=== PATIENT | female | born 1970 | race Hispanic/Latino ===

== ENCOUNTER 2017-11-07 09:37 | Emergency (ER) | payer BC ==
--- NOTE | 2017-11-07 10:44 | RAD REPORT ---
EXAM DESCRIPTION: RAD - Chest Single View - 11/07/2017 10:27 am CLINICAL HISTORY: Chest pain COMPARISON: None. TECHNIQUE: AP portable chest image was obtained 1023 hours . FINDINGS: Lungs are clear. Heart and vasculature are normal. No measurable pleural effusion and no p neumothorax. No gross bony abnormality seen. No acute aortic findings suspected. IMPRESSION: No acute cardiopulmonary process.
[2017-11-07] MEDS ORDERED: ASPIRIN 81 MG CHEWABLE TABLET ONE (10:48)
[2017-11-07 10:53] LABS: Protime INR 0.97
[2017-11-07 10:54] LABS: Absolute Lymphocytes (CBC) 0.9 K/uL (0.7-4.9); Absolute Monocytes 0.3 K/uL (0.1-1.3); Absolute Neutrophil 4.6 K/uL (1.8-8.0); Basophils % 0.5 % (0-1.3); Eosinophils % 0.9 % (0-4.4); Hematocrit 40.4 % (36.0-45.0); Lymphocytes % 15.9 % (15.3-44.8); MCH 29.7 pg (27.0-35.0); Monocytes % 4.4 % (3.3-12.3); RBC Red Blood Cell Count 4.64 M/uL (3.86-4.86)
--- NOTE | 2017-11-07 11:08 | EKG ---
Test Date: 2017-11-07 Test Time: 10:16:41 Electronic Operator: ROMERO MEASUREMENT RESULTS: Intervals: Rate: 66 MO: 190 QRSD: 88 QT: 376 QTc: 394 [place]: P: 55 MO: 190 QRS: 79 T: 24 INTERPRETIVE STATEMENTS: Normal sinus rhythm Nonspecific T wave abnormality Abnormal ECG Compared to ECG 02/20/2002 10:47:00 No significant changes Electronically Signed On 11-07-17 11:08:10 CDT by Jon Tovar
[2017-11-07 11:22] LABS: ALT/SGPT 33 U/L (12-78); AST/SGOT 18 U/L (15-37); Alkaline Phosphatase 102 U/L (45-117); BUN Blood Urea Nitrogen 13 mg/dL (7-18); Bicarbonate 29 mmol/L (21-32); Bilirubin Direct < 0.1 mg/dL (0-0.2); Bilirubin Total 0.3 mg/dL (0.2-1.0); Glucose Level 127 mg/dL (74-106); Magnesium 2.3 mg/dL (1.8-2.4); NT PRO-BNP 11 pg/mL (<125); Potassium 3.9 mmol/L (3.5-5.1); Protein, Total 8.2 g/dL (6.4-8.2); Sodium Level 143 mmol/L (136-145)
[2017-11-07 11:29] LABS: Thyroid Stimulating Hormone 1.63 uIU/mL (0.36-3.74)
[2017-11-07 12:21] LABS: Urine Blood NEGATIVE (NEG); Urine Glucose NEGATIVE (NEG); Urine Protein NEGATIVE (NEG)
--- NOTE | 2017-11-07 12:57 | EDPHYS ---
Physician Documentation [facility] Name: Estrellita Matute Age: 47 yrs Sex: Female : 1970 Arrival Date: 11/07/2017 Time: 09:40 Bed 15 Private MD: Candelario Mendez H ED Physician Jas Curiel HPI: 11/07 10:41 This 47 yrs old Female presents to ER via Ambulatory with complaints of Chest jr8 Tightness. 10:41 The patient or guardian reports chest pain that is located primarily in the anterior jr8 chest wall, left. Onset: acutely, yesterday. The pain radiates to the left arm. Associated signs and symptoms: Pertinent positives: fatigue. The chest pain is described as squeezing. Duration: The patient or guardian reports multiple episodes. Modifying factors: The symptoms are alleviated by nothing. the symptoms are aggravated by nothing. Severity of pain: At its worst the pain was moderate in the emergency department the pain has improved. The patient has not experienced similar symptoms in the past. The patient has not recently seen a physician. Stated that she has been feeling fatigued more so with exertion for the past month. Yesterday had episode of chest pain. Today had episode that lasted for about 1 hour. Came to ED at that time for further evaluation . 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 - Social history:: Smoking status: Patient/guardian denies using tobacco. - Ebola Screening: : Patient negative for fever greater than or equal to 101.5 degrees Fahrenheit, and additional compatible Ebola Virus Disease symptoms Patient denies exposure to infectious person Patient denies travel to an Ebola-affected area in the 21 days before illness onset No symptoms or risks identified at this time. ROS: 10:41 Eyes: Negative for injury, pain, redness, and discharge, ENT: Negative for injury, jr8 pain, and discharge, Neck: Negative for injury, pain, and swelling, Respiratory: Negative for shortness of breath, cough, wheezing, and pleuritic chest pain, Abdomen/GI: Negative for abdominal pain, nausea, vomiting, diarrhea, and constipation, Back: Negative for injury and pain, MS/Extremity: Negative for injury and deformity, Skin: Negative for injury, rash, and discoloration, Neuro: Negative for headache, weakness, numbness, tingling, and seizure. 10:41 Constitutional: Positive for fatigue, Negative for body aches, chills, fever, malaise, poor PO intake, weight loss. 10:41 Cardiovascular: Positive for chest pain, Negative for edema, orthopnea, palpitations, paroxysmal nocturnal dyspnea. Exam: 10:41 Eyes: Pupils equal round and reactive to light, extra-ocular motions intact. Lids and jr8 lashes normal. Conjunctiva and sclera are non-icteric and not injected. Cornea within normal limits. Periorbital areas with no swelling, redness, or edema. ENT: Nares patent. No nasal discharge, no septal abnormalities noted. Tympanic membranes are normal and external auditory canals are clear. Oropharynx with no redness, swelling, or masses, exudates, or evidence of obstruction, uvula midline. Mucous membranes moist. Neck: Trachea midline, no thyromegaly or masses palpated, and no cervical lymphadenopathy. Supple, full range of motion without nuchal rigidity, or vertebral point tenderness. No Meningismus. Cardiovascular: Regular rate and rhythm with a normal S1 and S2. No gallops, murmurs, or rubs. Normal PMI, no JVD. No pulse deficits. Respiratory: Lungs have equal breath sounds bilaterally, clear to auscultation and percussion. No rales, rhonchi or wheezes noted. No increased work of breathing, no retractions or nasal flaring. Abdomen/GI: Soft, non-tender, with normal bowel sounds. No distension or tympany. No guarding or rebound. No evidence of tenderness throughout. Back: No spinal tenderness. No costovertebral tenderness. Full range of motion. Skin: Warm, dry with normal turgor. Normal color with no rashes, no lesions, and no evidence of cellulitis. MS/ Extremity: Pulses equal, no cyanosis. Neurovascular intact. Full, normal range of motion. Neuro: Awake and alert, GCS 15, oriented to person, place, time, and situation. Cranial nerves II-XII grossly intact. Motor strength 5/5 in all extremities. Sensory grossly intact. Cerebellar exam normal. Normal gait. Vital Signs: 09:58 BP 130 / 80; Pulse 76; Resp 14; Temp 98.1; Pulse Ox 99% on R/A; Weight 89.81 kg; Height ch 5 ft. 6 in. (167.64 cm); Pain 6/10; 11:49 BP 118 / 87; Pulse 69; Resp 12; Pulse Ox 97% on R/A; mh5 12:22 BP 116 / 68; Pulse 64; Resp 15; Temp 97.6; Pulse Ox 99% on R/A; Pain 2/10; ch 13:01 BP 116 / 81; Pulse 67; Resp 13; Temp 98.3; Pulse Ox 99% on R/A; Pain 0/10; ch 09:58 Body Mass Index 31.96 (89.81 kg, 167.64 cm) MDM: 10:21 Patient medically screened. jr8 12:51 HEART Score: History: Moderately Suspicious (1), ECG: Normal (0), Age: > 45 and < 65 jr8 years (1), Risk Factors: 1 or 2 risk factors (1), [Hypercholesterolemia] [Obesity] Troponin: < or = 1 x Normal Limit (0). The patient was given aspirin in the Emergency Department. Data reviewed: vital signs, nurses notes, lab test result(s), EKG, radiologic studies, plain films, and as a result, I will discharge patient. Data interpreted: Pulse oximetry: on room air is 99 %. Interpretation: normal. Counseling: I had a detailed discussion with the patient and/or guardian regarding: the historical points, exam findings, and any diagnostic results supporting the discharge/admit diagnosis, lab results, radiology results, the need for outpatient follow up, a pta, to return to the emergency department if symptoms worsen or persist or if there are any questions or concerns that arise at home. ED course: Pain resolved. Feeling better. x2 negative troponin's. Will follow up with cardiology. If worse will come back . 11/07 10:09 Order name: Basic Metabolic Panel; Complete Time: 11:36 8 11/07 10:09 Order name: CBC with Diff; Complete Time: 11:15 jr8 09 10:09 Order name: LFT's; Complete Time: 11:36 11/07 10:09 Order name: Magnesium; Complete Time: 11:36 11/07 10:09 Order name: NT PRO-BNP; Complete Time: 11:36 11/07 10:09 Order name: PT-INR; Complete Time: 11:15 11/07 10:09 Order name: Troponin (emerg Dept Use Only); Complete Time: 11:36 11/07 10:09 Order name: XRAY Chest (1 view); Complete Time: 10:44 11/07 10:31 Order name: TSH; Complete Time: 11:36 11/07 10:31 Order name: T4 Free; Complete Time: 11:36 11/07 10:31 Order name: TSH mh5 11/07 12:13 Order name: Urine Dipstick--Ancillary (enter results); Complete Time: 12:30 bd 11/07 12:22 Order name: Troponin (emerg Dept Use Only); Complete Time: 12:51 ch 11/07 10:09 Order name: EKG; Complete Time: 10:10 11/07 10:09 Order name: Cardiac monitoring; Complete Time: 10:26 11/07 10:09 Order name: EKG - Nurse/Tech; Complete Time: 10:42 11/07 10:09 Order name: IV Saline Lock; Complete Time: 10:27 11/07 10:09 Order name: Labs collected and sent; Complete Time: 10:27 11/07 10:09 Order name: O2 Per Protocol; Complete Time: 10:42 11/07 10:09 Order name: O2 Sat Monitoring; Complete Time: 10:42 11/07 10:09 Order name: Urine Dipstick-Ancillary (obtain specimen); Complete Time: 13:01 Administered Medications: 10:45 Drug: Aspirin Chewable Tablet 324 mg Route: PO; 10:52 Follow up: Response: No adverse reaction ch Disposition: 14:38 Co-signature as Attending Physician, Jas Curiel MD. rn Disposition: 11/07/17 12:56 Discharged to Home. Impression: Chest pain, unspecified. - Condition is Stable. - Discharge Instructions: Nonspecific Chest Pain, Aspirin and Your Heart, Chest Pain Observation. - Medication Reconciliation Form, Thank You Letter, Antibiotic Education, Prescription Opioid Use form. - Follow up: Jon Tovar MD; When: 48 Hours; Reason: Recheck today's complaints, Continuance of care, Re-evaluation by your physician. - Problem is new. - Symptoms are resolved. Signatures: Dispatcher [employer] EDMS Halina Culver RN RN ch Nieto, Roman, MD MD rn Roszak, Josh, PA PA jr8 Corrections: (The following items were deleted from the chart) 13:13 12:56 11/07/2017 12:56 Discharged to Home. Impression: Chest pain, unspecified. ch Condition is Stable. Forms are Medication Reconciliation Form, Thank You Letter, Antibiotic Education, Prescription Opioid Use. Follow up: Jon Tovar; When: 48 Hours; Reason: Recheck today's complaints, Continuance of care, Re-evaluation by your physician. Problem is new. Symptoms are resolved. jr8
--- NOTE | 2017-11-07 12:57 | ER ---
Nurse's Notes [facility] Name: Estrellita Matute Age: 47 yrs Sex: Female : 1970 Arrival Date: 11/07/2017 Time: 09:40 Bed 15 Private MD: Candelario Mendez H Diagnosis: Chest pain, unspecified Presentation: 11/07 09:56 Presenting complaint: Patient states: chest pain started last night while cooking ch dinner and watching televison. Transition of care: patient was not received from another setting of care. Onset of symptoms was November 06, 2017 at 18:00. Risk Assessment: Do you want to hurt yourself or someone else? Patient reports no desire to harm self or others. Initial Sepsis Screen: Does the patient meet any 2 criteria? No. Patient's initial sepsis screen is negative. Does the patient have a suspected source of infection? No. Patient's initial sepsis screen is negative. Care prior to arrival: None. 09:56 Method Of Arrival: Ambulatory 09:56 Acuity: CATERINA 3 Triage Assessment: :58 General: Appears in no apparent distress. comfortable, Behavior is cooperative, ch appropriate for age. Pain: Complains of pain in left clavicle, anterior aspect of left upper chest and left breast Pain currently is 6 out of 10 on a pain scale. Pain began suddenly. Neuro: No deficits noted. Cardiovascular: Reports chest pain, Heart tones S1 S2 present Capillary refill < 3 seconds in bilateral fingers toes Clubbing of nail beds is absent Patient's skin is warm and dry. Pulses are all present. Edema is absent. Chest pain is described as mild. Respiratory: Airway is patent Respiratory effort is even, unlabored, Breath sounds are clear bilaterally. GI: No signs and/or symptoms were reported involving the gastrointestinal system. : No signs and/or symptoms were reported regarding the genitourinary system. Derm: Skin is pink, warm \T\ dry. 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 - Social history:: Smoking status: Patient/guardian denies using tobacco. - Ebola Screening: : Patient negative for fever greater than or equal to 101.5 degrees Fahrenheit, and additional compatible Ebola Virus Disease symptoms Patient denies exposure to infectious person Patient denies travel to an Ebola-affected area in the 21 days before illness onset No symptoms or risks identified at this time. Screenin:00 Abuse screen: Denies threats or abuse. Denies injuries from another. Nutritional screening: No deficits noted. Tuberculosis screening: No symptoms or risk factors identified. Fall Risk None identified. Assessment: 10:00 Reassessment: Patient appears in no apparent distress at this time. Patient and/or family updated on plan of care and expected duration. Pain level reassessed. Patient is alert, oriented x 3, equal unlabored respirations, skin warm/dry/pink. 10:42 Reassessment: Patient appears in no apparent distress at this time. No changes from previously documented assessment. Patient and/or family updated on plan of care and expected duration. Pain level reassessed. Patient is alert, oriented x 3, equal unlabored respirations, skin warm/dry/pink. 10:54 Reassessment: Patient appears in no apparent distress at this time. Patient and/or family updated on plan of care and expected duration. Pain level reassessed. 12:22 Reassessment: Patient appears in no apparent distress at this time. Patient and/or family updated on plan of care and expected duration. Pain level reassessed. Patient is alert, oriented x 3, equal unlabored respirations, skin warm/dry/pink. 12:35 Reassessment: Patient appears in no apparent distress at this time. repeat troponin. 13:01 Reassessment: Patient appears in no apparent distress at this time. Patient and/or family updated on plan of care and expected duration. Pain level reassessed. Patient is alert, oriented x 3, equal unlabored respirations, skin warm/dry/pink. Patient states feeling better. Patient states symptoms have improved. 15:33 Pain: Pain radiates to left arm. Vital Signs: 09:58 BP 130 / 80; Pulse 76; Resp 14; Temp 98.1; Pulse Ox 99% on R/A; Weight 89.81 kg; Height 5 ft. 6 in. (167.64 cm); Pain 6/10; 11:49 BP 118 / 87; Pulse 69; Resp 12; Pulse Ox 97% on R/A; mh5 12:22 BP 116 / 68; Pulse 64; Resp 15; Temp 97.6; Pulse Ox 99% on R/A; Pain 2/10; ch 13:01 BP 116 / 81; Pulse 67; Resp 13; Temp 98.3; Pulse Ox 99% on R/A; Pain 0/10; ch 09:58 Body Mass Index 31.96 (89.81 kg, 167.64 cm) ED Course: 09:40 Patient arrived in ED. mr 09:40 Candelario Mendez DO is Private Physician. mr 09:41 Halina Culver, MATT is Primary Nurse. 09:56 Triage completed. 09:58 Arm band placed on left wrist. Patient placed in an exam room, on a stretcher, on site monitor, on pulse oximetry. 10:00 No apparent distress. Resting quietly. 10:00 Patient has correct armband on for positive identification. Placed in gown. Bed in low ch position. Call light in reach. Side rails up X 1. Adult w/ patient. monitoring analyst on. Pulse ox on. NIBP on. 10:00 No provider procedures requiring assistance completed. Patient maintains SpO2 saturation greater than 95% on room air. 10:06 [facility] Wood [facility]. jr8 10:06 Jas Curiel MD is Attending Physician. jr8 10:23 EKG done, by warehousing technician. reviewed by Lamont MAZA. tc 10:25 Initial lab(s) drawn, by nm, sent to lab. Inserted saline lock: 20 gauge in right 5 antecubital area, using aseptic technique. Blood collected. 10:26 XRAY Chest (1 view) In Process Unspecified. EDMS 10:26 Basic Metabolic Panel Sent. 5 10:26 CBC with Diff Sent. 5 10:26 LFT's Sent. 5 10:26 Magnesium Sent. 5 10:26 NT PRO-BNP Sent. 5 10:26 PT-INR Sent. 5 10:26 Troponin (emerg Dept Use Only) Sent. mh5 10:27 X-ray completed. Portable x-ray completed in exam room. Patient tolerated procedure sw well. 10:27 Side rails up X2. Warm blanket given. 5 10:40 TSH Sent. 5 10:40 T4 Free Sent. 5 10:40 TSH Sent. [facility] 12:56 Jon Tovar MD is Referral Physician. jr8 15:33 IV discontinued, intact, bleeding controlled, No redness/swelling at site. Pressure ch dressing applied. Administered Medications: 10:45 Drug: Aspirin Chewable Tablet 324 mg Route: PO; 10:52 Follow up: Response: No adverse reaction Outcome: 12:56 Discharge ordered by . jr8 13:13 Patient left the ED. 15:32 Discharged to home ambulatory, with family. 15:32 Condition: improved 15:32 Discharge instructions given to patient, family, Instructed on discharge instructions, follow up and referral plans. no driving heavy equipment, Demonstrated understanding of instructions, follow-up care. Signatures: Dispatcher [employer] Halina Henderson, Amparo Saldivar RN, ch, Josh, PA PA [facility] Patricia Stringer, special service officer EKG Kyung Moralez Maria [facility]
== END 2017-11-07 13:13 | disposition home or self-care (01) ==
LOC: ER 09:37
DX: R07.9 Chest pain, unspecified (principal); E78.5 Hyperlipidemia, unspecified; K21.9 Gastro-esophageal reflux disease without esophagitis
CPT/HCPCS: 36415; 71045; 80048; 80076; 81003; 83735; 83880; 84439; 84443; 84484; 85025; 85610; 93005; 99285

== ENCOUNTER 2017-11-20 08:24 | Emergency (ER) | payer BC ==
[2017-11-20] MEDS ORDERED: LORazepam 2 MG/ML VIAL ONE (08:55)
[2017-11-20 09:10] LABS: Absolute Lymphocytes (CBC) 1.9 K/uL (0.7-4.9); Absolute Monocytes 0.3 K/uL (0.1-1.3); Absolute Neutrophil 3.5 K/uL (1.8-8.0); Basophils % 0.5 % (0-1.3); Hematocrit 41.7 % (36.0-45.0); Lymphocytes % 32.2 % (15.3-44.8); MCH 29.6 pg (27.0-35.0); MCV 86.1 fL (80-100); RBC Red Blood Cell Count 4.84 M/uL (3.86-4.86)
[2017-11-20 09:11] LABS: Potassium 3.8 mmol/L (3.5-5.1)
--- NOTE | 2017-11-20 09:30 | ER ---
Nurse's Notes [facility] Name: Estrellita Matute Age: 47 yrs Sex: Female : 1970 Arrival Date: 11/20/2017 Time: 08:26 Bed 5 Private MD: Candelario Mendez H Diagnosis: Anxiety disorder, unspecified;Palpitations Presentation: 11/20 08:30 Presenting complaint: Patient states: feeling of palpitations that started today cc3 morning. Transition of care: patient was not received from another setting of care. Onset of symptoms was November 20, 2017. Risk Assessment: Do you want to hurt yourself or someone else? Patient reports no desire to harm self or others. Initial Sepsis Screen: Does the patient meet any 2 criteria? No. Patient's initial sepsis screen is negative. Does the patient have a suspected source of infection? No. Patient's initial sepsis screen is negative. Care prior to arrival: None. 08:30 Method Of Arrival: Ambulatory cc3 08:30 Acuity: CATERINA 3 cc3 Triage Assessment: 08:30 General: Appears in no apparent distress. comfortable, Behavior is calm, cooperative, cc3 appropriate for age. Pain: Denies pain. EENT: No signs and/or symptoms were reported regarding the EENT system. Neuro: Level of Consciousness is awake, alert, obeys commands, Oriented to person, place, time, situation, Appropriate for age. Cardiovascular: Reports feeling of palpitations that started today morning. Respiratory: Airway is patent Respiratory effort is even, unlabored, Respiratory pattern is regular, symmetrical. GI: Abdomen is flat, round non-distended. : No signs and/or symptoms were reported regarding the genitourinary system. Derm: No signs and/or symptoms reported regarding the dermatologic system. Musculoskeletal: No signs and/or symptoms reported regarding the musculoskeletal system. 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 - Social history:: Smoking status: Patient/guardian denies using tobacco, never smoked. - Ebola Screening: : Patient denies travel to an Ebola-affected area in the 21 days before illness onset No symptoms or risks identified at this time. Screenin:30 Abuse screen: Denies threats or abuse. Denies injuries from another. Nutritional cc3 screening: No deficits noted. Tuberculosis screening: No symptoms or risk factors identified. Fall Risk None identified. Assessment: 08:30 General: Appears in no apparent distress. comfortable, Behavior is calm, cooperative, cc3 appropriate for age. Pain: Denies pain. Neuro: Level of Consciousness is awake, alert, obeys commands, Oriented to person, place, time, situation, Appropriate for age. Cardiovascular: Reports feeling of palpitations started today morning. Respiratory: Airway is patent Respiratory effort is even, unlabored, Respiratory pattern is regular, symmetrical. GI: Abdomen is flat, round non-distended. : No signs and/or symptoms were reported regarding the genitourinary system. EENT: No signs and/or symptoms were reported regarding the EENT system. Derm: No signs and/or symptoms reported regarding the dermatologic system. Musculoskeletal: No signs and/or symptoms reported regarding the musculoskeletal system. 09:45 Reassessment: Patient appears in no apparent distress at this time. Patient is alert, hj oriented x 3, equal unlabored respirations, skin warm/dry/pink. Patient states feeling better. Vital Signs: 08:30 BP 128 / 78; Pulse 90; Resp 18; Temp 97.4(O); Pulse Ox 96% ; Weight 98.88 kg; Pain 0/10;cc3 09:15 BP 116 / 73; Pulse 66; Resp 18; Pulse Ox 95% on R/A; cc3 ED Course: 08:26 Patient arrived in ED. mr 08:26 Candelario Mendez DO is Private Physician. mr 08:28 Lamont Wood PA is PHCP. jr8 08:28 Jas Curiel MD is Attending Physician. jr8 08:30 Patient has correct armband on for positive identification. Placed in gown. Bed in low cc3 position. Call light in reach. Side rails up X 1. Adult w/ patient. 08:30 Arm band placed on right wrist. hj 08:37 Tanya Lorenzo is Primary Nurse. cc3 08:38 Triage completed. cc3 08:43 Initial lab(s) drawn, by me, sent to lab. Inserted saline lock: 22 gauge in right hj antecubital area, using aseptic technique. Blood collected. 08:54 EKG done, by gyroscopic engineering technician. reviewed by Jas Curiel MD. tc 09:30 Candelario Mendez DO is Referral Physician. jr8 09:45 No provider procedures requiring assistance completed. IV discontinued, intact, hj bleeding controlled, No redness/swelling at site. Pressure dressing applied. Administered Medications: 08:50 Drug: Ativan 1 mg Route: IVP; Site: right antecubital; cc3 09:15 Follow up: Response: No adverse reaction hj Outcome: :30 Discharge ordered by MD. jr8 09:45 Discharged to home ambulatory, with family. hj 09:45 Condition: stable 09:45 Discharge instructions given to patient, family, Instructed on discharge instructions, follow up and referral plans. medication usage, Demonstrated understanding of instructions, follow-up care, medications, Prescriptions given X 1. 09:54 Patient left the ED. hj Signatures: Amapro Urena Josh, PA PA jr8 Patricia Stringer, drafter civil (cad) EKG Ttc Ananth Louise, RN RN Tanya Lorenzo cc3 Corrections: (The following items were deleted from the chart) 09:26 08:30 BP 128 / 78; Pulse 90bpm; Resp 18bpm; Pulse Ox 96%; Temp 97.4F Oral; Pain 0/10; cc3 cc3
--- NOTE | 2017-11-20 09:30 | EDPHYS ---
Physician Documentation [facility] Name: Estrellita Matute Age: 47 yrs Sex: Female : 1970 Arrival Date: 11/20/2017 Time: 08:26 Bed 5 Private MD: Candelario Mendez H ED Physician Jas Curiel HPI: 11/20 08:36 This 47 yrs old Female presents to ER via Unassigned with complaints of Fast jr8 Heart Rate. 08:36 Onset: The symptoms/episode began/occurred acutely, this morning. Associated signs and jr8 symptoms: Pertinent positives: nausea. Modifying factors: The patient symptoms are alleviated by nothing, the patient symptoms are aggravated by nothing. The patient has experienced a previous episode. The patient has not recently seen a physician. Patient stated that she woke up at 2 am this morning with racing feeling in heart. History of anxiety. Feels anxious currently. 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 - Social history:: Smoking status: Patient/guardian denies using tobacco, never smoked. - Ebola Screening: : Patient denies travel to an Ebola-affected area in the 21 days before illness onset No symptoms or risks identified at this time. ROS: 08:36 Eyes: Negative for injury, pain, redness, and discharge, ENT: Negative for injury, jr8 pain, and discharge, Neck: Negative for injury, pain, and swelling, Respiratory: Negative for shortness of breath, cough, wheezing, and pleuritic chest pain, Back: Negative for injury and pain, MS/Extremity: Negative for injury and deformity, Skin: Negative for injury, rash, and discoloration. 08:36 Cardiovascular: Positive for palpitations, Negative for chest pain, edema, orthopnea, paroxysmal nocturnal dyspnea. 08:36 Abdomen/GI: Positive for nausea, Negative for abdominal pain, vomiting, diarrhea, constipation, abdominal cramps, abdominal distension, anorexia, dysphagia, hematemesis, black/tarry stool, rectal pain, rectal bleeding, bowel incontinence, flatulence. 08:36 Psych: Positive for anxiety, Negative for depression, homicidal ideation, suicide gesture, suicidal ideation. Exam: 08:36 Eyes: Pupils equal round and reactive to light, extra-ocular motions intact. Lids and jr8 lashes normal. Conjunctiva and sclera are non-icteric and not injected. Cornea within normal limits. Periorbital areas with no swelling, redness, or edema. ENT: Nares patent. No nasal discharge, no septal abnormalities noted. Tympanic membranes are normal and external auditory canals are clear. Oropharynx with no redness, swelling, or masses, exudates, or evidence of obstruction, uvula midline. Mucous membranes moist. Neck: Trachea midline, no thyromegaly or masses palpated, and no cervical lymphadenopathy. Supple, full range of motion without nuchal rigidity, or vertebral point tenderness. No Meningismus. Cardiovascular: Regular rate and rhythm with a normal S1 and S2. No gallops, murmurs, or rubs. Normal PMI, no JVD. No pulse deficits. Respiratory: Lungs have equal breath sounds bilaterally, clear to auscultation and percussion. No rales, rhonchi or wheezes noted. No increased work of breathing, no retractions or nasal flaring. Abdomen/GI: Soft, non-tender, with normal bowel sounds. No distension or tympany. No guarding or rebound. No evidence of tenderness throughout. Back: No spinal tenderness. No costovertebral tenderness. Full range of motion. Skin: Warm, dry with normal turgor. Normal color with no rashes, no lesions, and no evidence of cellulitis. MS/ Extremity: Pulses equal, no cyanosis. Neurovascular intact. Full, normal range of motion. Neuro: Awake and alert, GCS 15, oriented to person, place, time, and situation. Cranial nerves II-XII grossly intact. Motor strength 5/5 in all extremities. Sensory grossly intact. Cerebellar exam normal. Normal gait. 08:36 Constitutional: The patient appears alert, awake, anxious, tearful in exam room 09:27 ECG was reviewed by the Attending Physician. 8 Vital Signs: 08:30 BP 128 / 78; Pulse 90; Resp 18; Temp 97.4(O); Pulse Ox 96% ; Weight 98.88 kg; Pain 0/10;cc3 09:15 BP 116 / 73; Pulse 66; Resp 18; Pulse Ox 95% on R/A; cc3 MDM: 08:34 Patient medically screened. jr8 09:28 Data reviewed: vital signs, nurses notes, lab test result(s), EKG. Data interpreted: jr8 Pulse oximetry: on room air is 95 %. Interpretation: normal. Counseling: I had a detailed discussion with the patient and/or guardian regarding: the historical points, exam findings, and any diagnostic results supporting the discharge/admit diagnosis, lab results, the need for outpatient follow up, a approver, to return to the emergency department if symptoms worsen or persist or if there are any questions or concerns that arise at home. Response to treatment: the patient's symptoms have resolved after treatment. ED course: Patient was seen here a few weeks ago with negative work up including cardiac markers and thyroid studies. Negative for acute findings today. Anxiety and palpitative feeling relieved by Ativan. Saw approver yesterday and is set up for stress test and echo. Will send home on anxiolytic medication for time being. 11/20 08:34 Order name: CBC with Diff; Complete Time: 09:13 jr8 11/20 08:34 Order name: Basic Metabolic Panel; Complete Time: 09:13 jr8 11/20 08:34 Order name: IV; Complete Time: 08:42 jr8 11/20 08:34 Order name: EKG - Nurse/Tech; Complete Time: 08:42 jr8 11/20 08:34 Order name: EKG; Complete Time: 08:34 jr8 EC:27 Rate is 71 beats/min. Rhythm is regular, Normal Sinus Rhythm. QRS [place] is Normal. [place] jr8 interval is normal at 188 msec. QRS interval is normal at 86 msec. QT interval is normal at 439 msec. Q waves are Present in leads III, aVF. T waves are Inverted in leads V1, V2, V3. T waves are Flattened in leads III, V4, V5. No ST changes noted. Clinical impression: Abnormal EKG without significant change. Interpreted by me. Reviewed by me. Administered Medications: 08:50 Drug: Ativan 1 mg Route: IVP; Site: right antecubital; cc3 09:15 Follow up: Response: No adverse reaction Disposition: 12:39 Co-signature as Attending Physician, Jas Curiel MD. rn Disposition: 11/20/17 09:30 Discharged to Home. Impression: Anxiety disorder, unspecified, Palpitations. - Condition is Stable. - Discharge Instructions: Panic Attacks, Palpitations, Generalized Anxiety Disorder. - Prescriptions for Hydroxyzine HCl 50 mg Oral Tablet - take 1 tablet by ORAL route every 8 hours As needed; 20 tablet. - Medication Reconciliation Form, Thank You Letter, Antibiotic Education, Prescription Opioid Use form. - Follow up: Candelario Mendez DO; When: 1 - 2 days; Reason: Recheck today's complaints, Continuance of care, Re-evaluation by your physician. - Problem is new. - Symptoms have improved. Signatures: Dispatcher [employer] EDMS Jas Curiel MD MD rn Roszak, Josh, PA PA jr8 Ananth Louise RN RN Tanya Bob cc3 Corrections: (The following items were deleted from the chart) 09:54 09:30 11/20/2017 09:30 Discharged to Home. Impression: Anxiety disorder, unspecified; hj Palpitations. Condition is Stable. Forms are Medication Reconciliation Form, Thank You Letter, Antibiotic Education, Prescription Opioid Use. Follow up: Candelario Mendez; When: 1 - 2 days; Reason: Recheck today's complaints, Continuance of care, Re-evaluation by your physician. Problem is new. Symptoms have improved. jr8
--- NOTE | 2017-11-21 09:33 | EKG ---
Test Date: 2017-11-20 Test Time: 08:36:29 [employer]: KIM MEASUREMENT RESULTS: Intervals: Rate: 71 [place]: 188 QRSD: 86 QT: 404 QTc: 439 [place]: P: 40 [place]: 188 QRS: 70 T: 15 INTERPRETIVE STATEMENTS: Normal sinus rhythm RSR' or QR pattern in V1 suggests right ventricular conduction delay T wave abnormality, consider anterior ischemia Abnormal ECG Compared to ECG 11/07/2017 10:16:41 RSR' in V1 or V2 now present Possible ischemia now present T-wave abnormality still present Electronically Signed On 11-21-17 09:32:30 CDT by Clifton Carrasquillo
== END 2017-11-20 09:54 | disposition home or self-care (01) ==
LOC: ER 08:24
DX: F41.9 Anxiety disorder, unspecified (principal); Z79.82 Long term (current) use of aspirin
CPT/HCPCS: 36415; 80048; 85025; 93005; 96374; 99284